=== PATIENT | female | born 1995 | race Caucasian/White ===

== ENCOUNTER 2017-11-26 01:53 | Emergency (ER) | payer MEDICAID, OTHER ==
[2017-11-26 02:50] LABS: URINE PH (Dip) POC 6.5 (5.0-8.5)
[2017-11-26 02:50] LABS: URINE BLOOD (Dip) POC Negative (NEGATIVE); URINE GLUCOSE (Dip) POC Negative (NEGATIVE); URINE KETONES (Dip) POC Negative (NEGATIVE); URINE LEUKOCYTE EST (Dip) POC Negative (NEGATIVE); URINE NITRITE (Dip) POC Negative (NEGATIVE); URINE TOTAL PROTEIN POC Negative (NEGATIVE)
== END 2017-11-26 04:22 | disposition home or self-care (01) ==
LOC: FTE 01:53
DX: J06.9 Acute upper respiratory infection, unspecified (principal)
CPT/HCPCS: 81003; 81025; 99282

== ENCOUNTER 2018-06-17 17:53 | Emergency (ER) | payer SELFPAY, MEDICAID | END 2018-06-17 18:42 | disposition left against medical advice (07) | LOC: FTE 18:42 | DX: Z53.21 Procedure and treatment not carried out due to patient leaving prior to being seen by health care provider (principal) ==

== ENCOUNTER 2018-11-25 23:06 | Emergency (ER) | payer SELFPAY, OTHER ==
[2018-11-26] MEDS: KETOROLAC 30 MG INJ IM (01:21)
== END 2018-11-26 01:44 | disposition home or self-care (01) ==
LOC: E/R 23:06
DX: G44.209 Tension-type headache, unspecified, not intractable (principal); F17.210 Nicotine dependence, cigarettes, uncomplicated
CPT/HCPCS: 81025; 96372; 99284-25